=== PATIENT | male | born 2000 | race Caucasian/White ===

== ENCOUNTER 2022-12-01 16:07 | Emergency (ER) | payer OTHER ==
[~2022-12-01] VITALS: Ht 190.5 cm; Wt 87.5 kg
[2022-12-01] MEDS ORDERED: MAGICMW SSP (18:39)
[2022-12-01] MEDS ORDERED: ONDA4TAB6 PO (18:39)
[2022-12-01] MEDS ORDERED: MAGIC MOUTHWASH *ED ONLY* 5ML ORAL SYRINGE SS ONE (18:40)
[2022-12-01 18:43] VITALS: BP 135/68
== END 2022-12-01 19:07 | disposition home or self-care (01) ==
LOC: M ED 16:07
DX: B34.8 Other viral infections of unspecified site (principal); F17.200 Nicotine dependence, unspecified, uncomplicated; Z79.899 Other long term (current) drug therapy